=== PATIENT | male | born 1980 | race Two or more races ===

== ENCOUNTER 2024-07-27 05:06 | Emergency (ER) | payer OTHER ==
[~2024-07-27] VITALS: Ht 180.3 cm; Wt 95.3 kg
[2024-07-27 05:20] VITALS: BP 156/85; O2SAT 98
[2024-07-27] MEDS ORDERED: TRAMADOL HCL 50 MG TABLET PO STA (08:26)
[2024-07-27 09:03] LABS: HEMATOCRIT 43.1 % (39.0-48.0); HEMOGLOBIN 14.2 g/dL (13-16.00); MEAN CELL VOLUME 92.8 fL (80.0-100.00); MEAN CORPUSCULAR HEMOGLOBIN 30.5 pg (27.00-32.0); MEAN CORPUSCULAR HGB CONC 32.9 g/dl (32.0-36.0); PLATELET COUNT 246 K/uL (150-450); RED BLOOD COUNT 4.65 M/uL (4.00-6.00); RED CELL DISTRIBUTION WIDTH 12.4 % (11.5-14.5)
== END 2024-07-27 12:32 | disposition home or self-care (01) ==
LOC: ER 05:06
PROVIDERS: General Practice
DX: M94.0 Chondrocostal junction syndrome [Tietze] (principal); Z88.6 Allergy status to analgesic agent; Z91.013 Allergy to seafood